=== PATIENT | female | born 1955 | race Caucasian/White ===

== ENCOUNTER → 2018-01-08 | Outpatient (CLI) | payer BC ==
[~2018-01-08] MED LIST: ASPIR 8181 M1 PO; Apresoline PO; Ativan PO; B12 PO; BIOTIN1000 MICRO PO; BUMEX2 MG PO; CALCIUM 500 +1 EACH PO; CALICUM 500+D1 EACH PO; CARAFATE1 GM PO; CHILD LITTLE A1 EACH PO; CIPRO500 MG PO; CLEOCIN300 MG PO; COUMADIN7.5 MG PO; ERGOCALCIF50000 UNIT PO; FLAGYL500 MG PO; FLINTSTONES COM18 MG PO; FOLBIC RF TABL1 EACH PO; Glucophage PO; KLOR-CON SPRIN10 MEQ PO; LISINOPRIL10 MG PO; LISINOPRIL5 MG PO; LORAZEPAM1 MG PO; LOVENOX150 MG/1 M SC; NORCO 5/3251 TABLET PO; Norvasc PO; PROPRANOLOL HCL20 MG PO; PROPRANOLOL HCL40 MG PO; PROTONIX20 MG PO; PROTONIX40 MG PO; SELENIUM200 MCG PO; VITAMIN B-12500 MC5 SL; Vicodin,Norco 5/325 PO; WARFARIN SODIUM6 MG PO; Zestril,Prinivil PO; Zyloprim PO; celeBREX PO; rolaids PO
== END | disposition home or self-care (01) ==
LOC: OPR 07:12 → EDSTATUS 08:00
PROC: 0TB13ZX Excision of Left Kidney, Percutaneous Approach, Diagnostic (ICD-10-PCS; principal; 2018-01-08)
DX: N28.1 Cyst of kidney, acquired (principal); Z85.528 Personal history of other malignant neoplasm of kidney; Z84.1 Family history of disorders of kidney and ureter; Z82.49 Family history of ischemic heart disease and other diseases of the circulatory system; Z83.3 Family history of diabetes mellitus; Z80.0 Family history of malignant neoplasm of digestive organs; Z80.1 Family history of malignant neoplasm of trachea, bronchus and lung; Z91.041 Radiographic dye allergy status
CPT/HCPCS: 77012; 85027; 85610; 85730; 88160; 88305; J3010